=== PATIENT | female | born 1990 | race Caucasian/White ===

== ENCOUNTER 2018-07-17 11:55 | Day surgery (SDC) | payer BC ==
[2018-07-17 12:15] LABS: Specific Gravity 1.025 (1.005-1.030)
[2018-07-17] MEDS ORDERED: Ringers Lactate 1,000 ML IV ONE (12:27)
[2018-07-17] MEDS ORDERED: FENTANYL CITR 100 MCG/2 ML ONE ×2 (12:51→13:15)
[2018-07-17] MEDS ORDERED: PROPOFOL 200 MG/20 ML VIAL IV ONE (12:51)
[2018-07-17] MEDS ORDERED: MIDAZOLAM HCL 2 MG/2 ML INJ ONE (12:51)
[2018-07-17] MEDS ORDERED: LIDOCAINE 1% MPF 5 ML VIAL ONE (12:51)
[2018-07-17] MEDS ORDERED: BUPIVACA 0.25%/EPI 0.0005% MDV 50 ML VIAL ONE (12:55)
[2018-07-17] MEDS: CEFAZOLIN 2GM (PREMIX IV) 2 GM/50 ML BAG ONE ×2 (12:57→13:00)
[2018-07-17] MEDS ORDERED: KETOROLAC 30 MG/ML INJ ONE (13:23)
[2018-07-17] MEDS ORDERED: ONDANSETRON 4 MG/2 ML VIAL ONE (13:23)
--- NOTE | 2018-07-17 13:25 | P.OP ---
Preoperative diagnosis: RIGHT breast abscess Postoperative diagnosis: RIGHT breast abscess Primary procedure: Incision and Drainage of RIGHT breast absess Secondary procedure: Biopsy of skin and dermis Anesthesia: GETA + Local Estimated blood loss: <10cc Specimen: Skin, tissue, cultures Findings: ~5cm multiloculated abscess of right breast, peau d'orange skin Complications: None Transferred to: Recovery Room Condition: Good
[2018-07-17] MEDS ORDERED: HYDROCODONE/APAP 5/325 MG TAB ONE (14:57)
--- NOTE | 2018-07-18 00:03 | OP ---
Date of Procedure: 07/17/2018 Surgeon: Brian Horan MD, Preoperative Diagnosis: Right breast abscess. Postoperative Diagnosis: Right breast abscess. Procedures Performed: 1.Incision and drainage, right breast abscess. 2.Secondary procedure; biopsy of skin and dermis. Anesthesia: General endotracheal plus local with 0.25% Marcaine with epinephrine. Estimated Blood Loss: Less than 2 cc. Specimens: 1.Skin and dermis. 2.Tissue from retroareolar region along the 3 o'clock position. 3.Cultures from both aerobic and anaerobic speciation. Findings: A 5-cm multiloculated abscess of the right breast with peau d'orange skin overlying. Ther efore, the biopsy of the skin was performed at this time. Complications: None. Disposition: Transferred to recovery room in good condition. Procedure In Detail: Informed consent was obtained. The patient was brought to the operating room, prepped and draped in the usual sterile fashion. After adequate anesthesia was achieved, an area of approximately 3 o'clock position of the right breast was found to be quite fluctuant, and there was p eau d'orange skin appearance at the dermal lymphatics. I took an ellipse of skin out from the nipple area including the nipple-areolar complex and lateral to this, extending down to the subcutaneous ti ssues and to deep dermis and subcutaneous fat. This was sent off for pathologic examination. I then opened this area in its entirety. An abscess was appreciated immediately. Cultures were sent at th is time for aerobic and anaerobic speciation. Some firm tissue from the posterior nipple-areolar com plex was sent off for pathologic examination as well. The area was copiously irrigated. The multilo culated abscess was completely unroofed until completely clear, and all hemostasis was achieved with electrocautery quite easily. The area was copiously irrigated multiple times until completely clear and dry. There were no additional abscesses appreciated at this time. I then inspected the area one last time for hemostasis and packed it with damp-to-dry dressings, and a sterile dressing was placed overtop. The patient tolerated the procedure well without evidence of complication and was transfer red to the PACU in good condition. All counts were correct at the end of the case. LASHON/DANE Voice ID: [id number] Report ID: [id number]
== END 2018-07-17 15:37 | disposition home or self-care (01) ==
LOC: OR 11:55
PROVIDERS: ATTEND Surgery
PROC: 0HBW0ZX Excision of Right Nipple, Open Approach, Diagnostic (ICD-10-PCS; 2018-07-17)
PROC: 0H9T0ZZ Drainage of Right Breast, Open Approach (ICD-10-PCS; principal; 2018-07-17 12:00)
DX: N61.1 Abscess of the breast and nipple (principal)
CPT/HCPCS: 81025; 87070; 87075; 87185; 87205; 88304; 88305; J0690; J2250; J2405; J2704; J3010